=== PATIENT | male | born 1995 | race Caucasian/White ===

== ENCOUNTER 2020-02-18 07:07 | Outpatient (CLI) | payer BC, OTHER ==
[2020-02-18 18:05] LABS: Mean Corpuscular HGB CONC 32.3 g/dL (32.0-36.0); Mean Corpuscular Hemoglobin 29.8 pg (27.0-31.0); Mean Corpuscular Volume 92.4 fL (78.0-98.0); Mean Platelet Volume 8.7 fL (7.4-10.4); Platelet Count 259 thou/uL (130-400); RBC Distribution Width 11.9 % (11.5-14.5); Red Blood Cell (RBC) Count 5.71 mill/uL (4.70-6.10); White Blood Cell (WBC) Count 11.6 thou/uL (4.8-10.8)
[2020-02-19 12:15] LABS: SARS-CoV-2 MS2 Positive; SARS-CoV-2 N Gene Negative; SARS-CoV-2 S Gene Negative; SARS-CoV-2 orf1ab Negative
== END 2020-02-18 07:08 | disposition home or self-care (01) ==
LOC: LABBT 07:07
PROVIDERS: ATTEND Orthopaedic Surgery Hand Surgery
DX: Z01.812 Encounter for preprocedural laboratory examination (principal); Z11.59 Encounter for screening for other viral diseases; D48.7 Neoplasm of uncertain behavior of other specified sites
CPT/HCPCS: 85027; 87635; U0003

== ENCOUNTER 2020-02-21 12:47 | Day surgery (SDC) | payer BC, OTHER ==
[2020-02-17 12:00] VITALS: BMI 34.7
[~2020-02-21 12:47] MED LIST: Dexamethasone 20 MG/5 ML VIAL ONE; Ketorolac Tromethamine 30 MG/ML VIAL ONE; Lidocaine 1% PF 5 ML VIAL ONE; Ondansetron PF 4 MG/2 ML Vial ONE; PROPOFOL 200 MG/20 ML VIAL ONE
[2020-02-21] MEDS ORDERED: Betamet Acet/Betamet Na Ph 30 MG/5 ML VIAL ONE (15:35)
[2020-02-21] MEDS ORDERED: Bacitracin Zinc Ointment 30 gm TUBE ONE (15:35)
[2020-02-21] MEDS ORDERED: Bupivacaine PF 0.5% 30 ML VIAL ONE (15:35)
[2020-02-21] MEDS ORDERED: Fentanyl 100 MCG/2 ML VIAL ONE (15:38)
[2020-02-21] MEDS ORDERED: PROPOFOL 20 ML ONE (16:08)
[2020-02-21] MEDS ORDERED: Meperidine HCl/PF 25 MG/ML VIAL ONE (16:53)
[2020-02-21] MEDS ORDERED: Ketorolac Tromethamine 30 MG/ML VIAL ONE (16:59)
--- NOTE | 2020-02-21 17:48 | OP ---
DATE OF PROCEDURE: 02/21/2020 PREOPERATIVE DIAGNOSIS: Giant cell tumor, approximately 2 cm, left index finger middle phalanx. 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 PROCEDURE PERFORMED: Excisional biopsy of the left index finger middle phalanx benign mass, 1.5 to 2.0 cm. SPECIMEN SENT: Yes, the giant cell tumor itself. TOURNIQUET TIME: 8 minutes. ESTIMATED BLOOD LOSS: 5 mL. INDICATION: Painful mass, pressure with flexion of the digit, tenting the skin, has been there for several months without change in size. DESCRIPTION OF PROCEDURE: After successful general endotracheal anesthesia, the limb was prepped and draped. Time-out was done appropriately. We then injected with 10 mL of 0.5% Marcaine to the metacarpophalangeal block level of the left index finger. We then outlined an incision that was a modified lazy-S incision with a transverse limb just proximal to the distal interphalangeal joint and just distal to the mass. We carried the incision through skin and subcutaneous tissue, identified the neurovascular bundle as well as the venous plexus over the mass. The mass was completely dissected free with the combination of Blount blade and tenotomy scissors. We then elevated the mass off the extensor mechanism where it was tenting, especially where it was tenting the radial aspect of the extensor mass, causing some loss in width. Once it was elevated here, there was a small amount of the mass attached to the joint capsule in its radial recess and this was released without complication. We then had the mass en bloc, measured 1.75 x 1 cm with fibrinous material, consistent with giant cell tumor and this was then sent to Pathology. We irrigated, released the tourniquet, held a moist sponge on the wound for 3 minutes and then closed the incision with interrupted 4-0 nylon in simple pattern. The patient left the operating room without evidence of anesthetic or operative complication. Job ID: [id number]
== END 2020-02-21 18:25 | disposition home or self-care (01) ==
LOC: SDC 12:47
PROVIDERS: ATTEND Orthopaedic Surgery Hand Surgery
PROC: 0LB80ZZ Excision of Left Hand Tendon, Open Approach (ICD-10-PCS; principal; 2020-02-21)
DX: D21.12 Benign neoplasm of connective and other soft tissue of left upper limb, including shoulder (principal); Z87.891 Personal history of nicotine dependence; Z98.890 Other specified postprocedural states
CPT/HCPCS: 88307; J0690; J0702; J1100; J1885; J2001; J2175; J2405; J2704; J3010; S0020